=== PATIENT | male | born 1990 ===

== ENCOUNTER 2016-12-27 01:25 | Emergency (ER) | payer MEDICAID, OTHER ==
[2016-12-27 01:40] VITALS: RESP 16; TEMP 97.3
--- NOTE | 2016-12-27 03:16 | C.PDOC ---
History Of Present Illness Patient is a 26 year old male who presents to the ER stating that his mother kicked him out if his home yesterday and he has no where to go. Patient states that he grew upset and starting having chest pains and a headache. Denies substance abuse or ETOH use. Denies any nausea, vomiting, or fever. Time Seen by Provider: 12/27/16 01:43 Chief Complaint (Nursing): Medical Clearance History Per: Patient History/Exam Limitations: no limitations Onset/Duration Of Symptoms: Hrs Current Symptoms Are (Timing): Still Present Past Medical History Reviewed: Historical Data, Nursing Documentation, Vital Signs Vital Signs: Last Vital Signs Temp 97.3 F L 12/27/16 01:37 Pulse 70 12/27/16 01:37 Resp 16 12/27/16 01:37 BP 124/85 12/27/16 01:37 Pulse Ox 97 12/27/16 06:06 Family History: States: Unknown Family Hx - Social History Hx Alcohol Use: No Hx Substance Use: No - Immunization History Hx Tetanus Toxoid Vaccination: No Hx Influenza Vaccination: No Hx Pneumococcal Vaccination: No Review Of Systems Except As Marked, All Systems Reviewed And Found Negative. Constitutional: Negative for: Fever, Chills Cardiovascular: Positive for: Chest Pain. Negative for: Palpitations Respiratory: Negative for: Cough, Shortness of Breath Gastrointestinal: Negative for: Nausea, Vomiting, Diarrhea Neurological: Positive for: Headache Physical Exam - Physical Exam Appears: Well, Non-toxic Skin: Normal Color, Warm, Dry Head: Atraumatic, Normacephalic Eye(s): bilateral: Normal Inspection Oral Mucosa: Moist Throat: Normal Neck: Normal, Normal ROM, Supple Chest: Symmetrical Cardiovascular: Rhythm Regular Respiratory: Normal Breath Sounds, No Rales, No Rhonchi, No Wheezing Gastrointestinal/Abdominal: Soft, No Tenderness Neurological/Psych: Oriented x3, Normal Speech, Normal Cognition ED Course And Treatment ECG: Interpreted By Me ECG Interpretation: No Acute Changes Rate From EC O2 Sat by Pulse Oximetry: 97 (Room air) Pulse Ox Interpretation: Normal Progress Note: EKG and chest x-ray ordered. Tylenol PO administered. Patient slept till 6 am. On re-evaluation he feels better and is stable to be d/c home. Disposition - Disposition Disposition: HOME/ ROUTINE Disposition Time: 06:06 Condition: STABLE Instructions: Stress (ED) - Clinical Impression Clinical Impression: Stress - Scribe Statement The provider has reviewed the documentation as recorded by the Scribe Ronny Lucero All medical record entries made by the Scribe were at my direction and personally dictated by me. I have reviewed the chart and agree that the record accurately reflects my personal performance of the history, physical exam, medical decision making, and the department course for this patient. I have also personally directed, reviewed, and agree with the discharge instructions and disposition.
[2016-12-27 06:27] VITALS: BP 108/68; PULSE 81; O2SAT 98
--- NOTE | 2016-12-27 09:02 | RAD ---
HISTORY: CP COMPARISON: No prior. TECHNIQUE: Chest PA and lateral FINDINGS: LUNGS: No active pulmonary disease. PLEURA: No significant pleural effusion identified. No pneumothorax apparent. CARDIOVASCULAR: Normal. OSSEOUS STRUCTURES: Antg-od-hypknnzh dextroscoliosis seen at the mid and lower thoracic spine. VISUALIZED UPPER ABDOMEN: Normal. OTHER FINDINGS: None. IMPRESSION: No active disease. Scoliosis.
--- NOTE | 2016-12-28 23:13 | CARD ---
APPROVED REPORT EKG Measurement Heart [id number] ID [id number] <Conclusion> Sinus bradycardia Otherwise normal ECG
== END 2016-12-27 06:26 | disposition home or self-care (01) ==
LOC: C.ER 01:25
DX: Z73.3 Stress, not elsewhere classified (principal)